=== PATIENT | female | born 1985 | race Caucasian/White ===

== ENCOUNTER → 2018-03-27 | Outpatient (CLI) | payer OTHER ==
[2018-03-27 18:31] LABS: HCT 42.8 % (34.0-46.0); HGB 13.8 gm/dL (11.4-16.0); MCH 30.3 pg (25.0-35.0); MCHC 32.2 g/dL (31.0-37.0); Mean Platelet Volume 6.5; Platelet Count 212 k/uL (150-450); RBC 4.55 m/uL (3.80-5.40); RDW 12.4 % (11.5-15.5); WBC 10.8 k/uL (3.8-10.6)
== END | disposition home or self-care (01) ==
LOC: LABMAIN 17:54
PROVIDERS: ATTEND Obstetrics & Gynecology
DX: Z34.01 Encounter for supervision of normal first pregnancy, first trimester (principal); Z3A.00 Weeks of gestation of pregnancy not specified
CPT/HCPCS: 36415; 82947; 85027; 86592; 86762; 86850; 86900; 86901; 87340

== ENCOUNTER 2018-11-09 03:14 | Inpatient (IN) | payer OTHER ==
[2018-11-09] MEDS ORDERED: LIDOCAINE 0.5% (PF) 5 MG/ML (50 ML SDV) SQ PRN (03:40)
[2018-11-09] MEDS ORDERED: METHYLERGONOVINE 0.2 MG/ML 1 ML AMP IM PRN (03:40)
[2018-11-09] MEDS ORDERED: OXYTOCIN 10 UNIT/ML 1 ML VIAL IM PRN (03:40)
[2018-11-09] MEDS ORDERED: TERBUTALINE 1 MG/ML VIAL SQ PRN (03:40)
[2018-11-09] MEDS ORDERED: CARBOPROST TROMETHAMINE 250 MCG/ML 1 ML AMP IM PRN (03:40)
[2018-11-09 04:02] LABS: Basophils % (A) 0 %; Eosinophils # (A) 0.1 k/uL (0-0.7); Eosinophils % (A) 1 %; HCT 40.7 % (34.0-46.0); HGB 13.2 gm/dL (11.4-16.0); Lymphocytes % (A) 26 %; MCH 29.4 pg (25.0-35.0); MCHC 32.4 g/dL (31.0-37.0); MCV 90.8 fL (80.0-100.0); Mean Platelet Volume 7.7; Monocytes # (A) 0.6 k/uL (0-1.0); Monocytes % (A) 6 %; Neutrophils # (A) 7.5 k/uL (1.3-7.7); Neutrophils % (A) 65 %; Platelet Count 228 k/uL (150-450); RBC 4.48 m/uL (3.80-5.40); RDW 13.1 % (11.5-15.5); WBC 11.5 k/uL (3.8-10.6)
[2018-11-09] MEDS: LACTATED RINGERS 1,000 ML IV SCH ×2 (05:13→07:32)
[2018-11-09] MEDS ORDERED: OXYTOCIN 30 UNITS/500 ML NS 30 UNIT in SALINE 1 500ML.BAG IV SCH (05:30)
[2018-11-09 05:34] VITALS: BMI 35.9
[2018-11-09] MEDS ORDERED: fentaNYL (PF) 50 MCG/ML 5 ML AMP ONE (07:29)
[2018-11-09] MEDS ORDERED: ROPIVACAINE 5MG/ML 20ML VIAL ONE (07:29)
[2018-11-09] MEDS ORDERED: SODIUM CHLORIDE 0.9% 100 ML BAG ONE (07:29)
[2018-11-09] MEDS ORDERED: PHENYLEPHRINE-0.9% NACL SYG 1 MG/10 ML SYRINGE ONE (07:29)
--- NOTE | 2018-11-09 08:21 | P.HPOB ---
History of Present Illness H&P Date: 11/09/18 Chief Complaint: Leaking of fluid This patient is a pleasant 32-year-old 1 para 0 female estimated date of confinement 11/13/2018 estimated gestational age 39-3/7 weeks who presents to labor and delivery with complaint of leaking of fluid at 2:30 this morning. Patient's found to have gross rupture membranes. She is beginning to have contractions upon admission. care is complicated by history of previous LEEP procedure 8 years ago by another physician. Patient was follow cervical lengths and routine exams and did not have any incompetency problems. Cervix tinted felt to be somewhat scarred however. care is otherwise been uncomplicated. Review of Systems Genitourinary: Reports Menstruation: Reports amenorrhea Past Medical History Past Medical History: No Reported History History of Any Multi-Drug Resistant Organisms: None Reported Additional Past Surgical History / Comment(s): Alice surgery on both feet (2011), LEEP (2009) Past Anesthesia/Blood Transfusion Reactions: No Reported Reaction Past Psychological History: No Psychological Hx Reported Smoking Status: Never smoker Past Alcohol Use History: None Reported Past Drug Use History: None Reported - Past Family History Mother History Unknown: Yes Family Medical History: No Reported History Additional Family Medical History / Comment(s): pt adopted Medications and Allergies Home Medications Medication Instructions Recorded Confirmed Type Pnv,Calcium 72/Iron/Folic Acid 1 tab PO DAILY 11/09/18 11/09/18 History [ Plus Tablet] Allergies Allergy/AdvReac Type Severity Reaction Status Date / Time No Known Allergies Allergy Verified 11/09/18 03:27 Exam Vital Signs Temp Pulse Resp BP Pulse Ox 11/09/18 03:59 97.7 F 83 16 133/85 99 11/09/18 03:29 97.7 F 83 16 133/85 Intake and Output 11/08/18 11/09/18 11/09/18 22:59 06:59 14:59 Other: # Voids 2 Weight 86.137 kg - OBG Physical Exam Abdomen: bowel sounds normal, no diffuse tenderness, no bruit present, no guarding noted, no hepatomegaly, no splenomegaly, no mass Vulva: both: normal Vagina: normal moisture, no discharge Cervix: Cervix is fingertip with some scarring however upon digital exam she is 4 cm. Cervix: no lesion, no discharge Uterus: enlarged (Fundal height is consistent with dates) Results blood work shows she is B positive, rubella immune, RPR nonreactive, hepatitis B negative she did do maternity 21 which showed normal 46 XY, Glucola was abnormal with a normal three-hour gtt. Ultrasounds of shown normal anatomy. Result Diagrams: 11/09/18 03:53 Abnormal Lab Results - Last 24 Hours (Table) 11/09/18 Range/Units 03:53 WBC 11.5 H (3.8-10.6) k/uL Assessment and Plan Assessment: This is a pleasant 32-year-old 1 para 0 female 39-3/7 weeks gestation with spontaneous rupture membranes in early labor. Patient does have some cervical stenosis from her previous cervical surgery but this has resolved with manual dilation. Plan is to augment as necessary, pain control as requested, and anticipate vaginal delivery. (1) Spontaneous rupture of amniotic membranes Current Visit: Yes Status: Acute Code(s): AZC7117 - SNOMED Code(s): 439597862 (2) 39 weeks gestation of Current Visit: Yes Status: Acute Code(s): Z3A.39 - 39 WEEKS GESTATION OF PRE GNANCY SNOMED Code(s): 12761175
--- NOTE | 2018-11-09 08:22 | P.MSEPDOC ---
Presenting Problems - Arrival Data Date of Arrival on Unit: 11/09/18 Time of Arrival on Unit: 03:15 Mode of Transport: Wheelchair - Complaint Comment: [id number] Medical History - Information : 1 Para: 0 Term: 0 : 0 Abortions: Spontaneous or Elective: 0 Number of Living Children: 0 - Gestational Age Gestational Age by LISA (wks/days): 39 Weeks and 3 Days Review of Systems - Review of Systems Constitutional: No problems Breast: No problems ENT: No problems Cardiovascular: No problems Respiratory: No problems Gastrointestinal: No problems Genitourinary: No problems Musculoskeletal: No problems Neurological: No problems Skin: No problems Vital Signs - Temperature Temperature: 97.7 F Temperature Source: Temporal Artery Scan - Pulse Right Sitting Brachial Pulse Rate: 83 Pulse Assessment Method: Automatic Cuff - Respirations Respiratory Rate: 16 Oxygen Delivery Method: Room Air O2 Sat by Pulse Oximetry: 99 - Blood Pressure Right Arm Sitting Blood Pressure: 133/85 Blood Pressure Mean: 101 Blood Pressure Source: Automatic Cuff Medical Screen Scoring (Pre) - Cervical Exam Dilation: 0 cm = 0 Membranes: Ruptured = 3 - Uterine Contractions Frequency: > or = 36 weeks =2 Duration: > 40 seconds = 2 - Maternal Vital Signs Maternal Temperature: N/A Maternal Blood Pressure: N/A Signs of Preeclampsia: N/A Maternal Respirations: N/A - Assessment Baseline FHR: 145 Heart Rate - NICHD Category: Category I (Normal) = 0 NST: Reactive - Total Score Total Score (Pre): 7 - Level of Risk Level of Risk: Medium (6-9) Physician Notification (Pre) - Physician Notified Physician Notified Date: 11/09/18 Physician Notified Time: 04:13 Physician/Practitioner Notifed:: DR SIMMS New Order Received: Yes Disposition - Disposition OB Disposition: Admit, LDRP Suite, Discharge to home I agree with the RN Medical Screening Exam: Yes Risk & Benefit of care provided described in d/c instruction: Yes Diagnosis: ENCOUNTER FOR FULL-TERM UNCOMPLICATED DELIVERY
[2018-11-09] MEDS ORDERED: SIMETHICONE 80 MG CHEWABLE PO PRN (14:05)
[2018-11-09] MEDS ORDERED: ACETAMINOPHEN TAB 325 MG TAB PO PRN (14:05)
[2018-11-09] MEDS ORDERED: BENZOCAINE/MENTHOL SPRAY 1 GM/SPRAY AEROSOL TOPICAL PRN (14:05)
[2018-11-09] MEDS ORDERED: LANOLIN CREAM 5 GM TUBE TOPICAL PRN (14:05)
[2018-11-09] MEDS ORDERED: HYDROCORTISONE 2.5% RECTAL CREAM 30 GM TUBE RECTAL PRN (14:05)
[2018-11-09] MEDS ORDERED: BISACODYL 10 MG SUPP RECTAL PRN (14:05)
[2018-11-09] MEDS ORDERED: WITCH HAZEL 1 EACH MED..PAD TOPICAL PRN (14:05)
[2018-11-09] MEDS ORDERED: diphenhydrAMINE 25 MG CAP PO PRN (14:05)
[2018-11-09] MEDS ORDERED: ZOLPIDEM 5 MG TAB PO PRN (14:05)
[2018-11-09] MEDS ORDERED: diphenhydrAMINE 50 MG/ML 1 ML VIAL IVP PRN (14:05)
[2018-11-09] MEDS ORDERED: OXYTOCIN 20 UNITS/1000 ML NS 1,000 ML IV SCH (14:15)
--- NOTE | 2018-11-09 14:26 | P.PROBDLV ---
Vaginal Delivery Note - . Vaginal Delivery Note: Normal spontaneous vaginal delivery viable male infant Apgars 9 and 9 delivery time is 1321 hrs. Please see dictated H&P for intimate details of this patient's admission. Brief summary is a pleasant 33-year-old 1 para 0 female 39-3/7 weeks gestation is admitted to labor and delivery complaints of gush of fluid about 2:30 this morning. On admission patient is closed to fingertip dilated and having regular painful contractions. Patient's had a history of previous LEEP procedure done about 8 years ago and I think she does have some cervical stenosis. Digitally the cervix is dilated to 4 cm easily and this adhesive band releases. Labor thereafter progresses normally and she does get an epidural for pain control. Patient gets to complete pushes for approximately 1-1/2 hours. Patient brings the head to the perineum the posterior perineum was supported. We have controlled delivery of 's head over the intact perineum. Mouth and nares are bulb suctioned. There is no evidence of nuchal cord. With gentle downward traction we then have delivery of the anterior and posterior shoulder and rest this 's body. This is a vigorous viable male Apgars are 9 and 9 delivery time is 1321 hrs. was laid on the mother's abdomen and after the cord is done pulsating is doubly clamped and cut appears to be trivascular. Placenta spontaneously delivered intact. Inspection of perineum shows a second- degree laceration posteriorly which is repaired with 3-0 Vicryl usual fashion excellent reapproximation is noted. She does have continued bright red bleeding and I cannot find a specific area this however does appear to become from one of the cervical edges and after prolonged observation this does not appear to be a significant amounts of therefore continue to watch her closely. Estimated blood loss is 400 mL. There are no complications. All counts are correct 3. Infant and mother stable delivery room.
[2018-11-09] MEDS: IBUPROFEN 600 MG TAB PO PRN ×2 (14:30→20:13)
[2018-11-09] MEDS: SENNOSIDES-DOCUSATE SODIUM 1 EACH TAB PO SCH (20:14)
[2018-11-10] MEDS: IBUPROFEN 600 MG TAB PO PRN ×2 (01:25→08:15)
[2018-11-10 06:54] LABS: Basophils % (A) 0 %; Eosinophils # (A) 0.1 k/uL (0-0.7); Eosinophils % (A) 1 %; HCT 33.2 % (34.0-46.0); HGB 10.9 gm/dL (11.4-16.0); Lymphocytes # (A) 3.2 k/uL (1.0-4.8); Lymphocytes % (A) 26 %; MCH 29.4 pg (25.0-35.0); MCV 89.3 fL (80.0-100.0); Mean Platelet Volume 8.8; Monocytes # (A) 0.5 k/uL (0-1.0); Monocytes % (A) 4 %; Neutrophils % (A) 67 %; Platelet Count 200 k/uL (150-450); RBC 3.72 m/uL (3.80-5.40); RDW 13.2 % (11.5-15.5); WBC 12.1 k/uL (3.8-10.6)
--- NOTE | 2018-11-10 07:13 | P.PNOBGVD ---
Subjective - Subjective Patient reports: Reports appetite normal, Reports voiding normally, Reports pain well controlled, Reports ambulating normally : doing well Objective - Latest Vital Signs Latest vital signs: Vital Signs Temp Pulse Resp BP Pulse Ox 11/10/18 00:00 97.9 F 76 16 125/85 98 11/09/18 20:00 97.4 F L 84 16 141/78 98 11/09/18 15:30 98.2 F 109 H 18 134/95 11/09/18 15:00 98.4 F 102 H 16 140/74 11/09/18 14:30 98.6 F 113 H 18 134/68 11/09/18 14:15 98.3 F 109 H 18 144/72 11/09/18 14:00 98.4 F 96 16 154/83 11/09/18 13:45 107 H 16 149/81 11/09/18 13:30 98.2 F 110 H 18 140/81 11/09/18 08:22 97.7 F 83 16 133/85 99 Intake and Output 11/09/18 11/10/18 11/10/18 22:59 06:59 14:59 Other: # Voids 1 2 - Exam Lungs: bilateral: normal Chest: Normal S1, Normal S2 Extremities: Present: normal Abdomen: Present: normal appearance, soft Uterus: Present: normal, firm - Labs Labs: Abnormal Lab Results - Last 24 Hours (Table) 11/10/18 Range/Units 06:40 WBC 12.1 H (3.8-10.6) k/uL RBC 3.72 L (3.80-5.40) m/uL Hgb 10.9 L (11.4-16.0) gm/dL Hct 33.2 L (34.0-46.0) % Neutrophils # 8.0 H (1.3-7.7) k/uL Assessment and Plan Assessment: day #1. Patient is resting without complaints wishes to go home. Vital signs are stable and she is afebrile. Uterus is firm nontender and she is having normal lochia. My impression is a normal course. Plan is to continue routine care discharge home later today. (1) Spontaneous rupture of amniotic membranes Current Visit: Yes Status: Acute Code(s): XVC9912 - SNOMED Code(s): 299689549 (2) 39 weeks gestation of Current Visit: Yes Status: Acute Code(s): Z3A.39 - 39 WEEKS GESTATION OF SNOMED Code(s): 53363928
--- NOTE | 2018-11-10 07:17 | P.DS ---
Providers Date of admission: 11/09/18 03:48 Expected date of discharge: 11/10/18 Attending physician: Genaro To Primary care physician: Genaro To - Discharge Diagnosis(es) (1) Spontaneous rupture of amniotic membranes Current Visit: Yes Status: Acute (2) 39 weeks gestation of Current Visit: Yes Status: Acute Hospital Course: Please see dictated H&P for intimate details of this patient's admission. Brief summary is a pleasant 33-year-old 1 para 0 female 39-3/7 weeks gestation admitted to labor and delivery spontaneous rupture membranes. Patient is admitting goes on have a vaginal delivery viable male infant. Please see dictated delivery note. day #1 patient was feeling well wishes to go home. Patient's felt be stable for discharge home follow up with me in 6 weeks. Procedures: Normal spontaneous vaginal delivery Patient Condition at Discharge: Good Plan - Discharge Summary New Discharge Prescriptions: New Ibuprofen [Motrin] 600 mg PO Q6HR PRN #40 tab PRN Reason: Mild Pain Or Fever >= 100.5 No Action Pnv,Calcium 72/Iron/Folic Acid [ Plus Tablet] 1 tab PO DAILY Discharge Medication List Pnv,Calcium 72/Iron/Folic Acid [ Plus Tablet] 1 tab PO DAILY 11/09/18 [History] Ibuprofen [Motrin] 600 mg PO Q6HR PRN #40 tab 11/10/18 [Rx] Follow up Appointment(s)/Referral(s): Genaro To MD [Primary Care Provider] - 6 Weeks Patient Instructions/Handouts: Vaginal Delivery (DC) Activity/Diet/Wound Care/Special Instructions: No intercourse or anything per vagina for 6 weeks. Please call if any fever, chills, excessive vaginal bleeding, and/or abdominal pain. Discharge Disposition: HOME SELF-CARE
[2018-11-10] MEDS: SENNOSIDES-DOCUSATE SODIUM 1 EACH TAB PO SCH (08:14)
[2018-11-10 09:05] VITALS: BP 123/75; PULSE 79; RESP 18; TEMP 98.3
== END 2018-11-10 16:49 | disposition home or self-care (01) | DRG 807 ==
LOC: FBPOP 03:14 → 4FBP 03:48
PROVIDERS: ADMIT Obstetrics & Gynecology; ATTEND Obstetrics & Gynecology
PROC: 10E0XZZ Delivery of Products of Conception, External Approach (ICD-10-PCS; principal; 2018-11-09)
PROC: 0U7C7ZZ Dilation of Cervix, Via Natural or Artificial Opening (ICD-10-PCS; 2018-11-09)
PROC: 00HU33Z Insertion of Infusion Device into Spinal Canal, Percutaneous Approach (ICD-10-PCS; 2018-11-09)
PROC: 3E0R3BZ Introduction of Anesthetic Agent into Spinal Canal, Percutaneous Approach (ICD-10-PCS; 2018-11-09)
DX: O34.43 Maternal care for other abnormalities of cervix, third trimester (principal); Z37.0 Single live birth; N88.2 Stricture and stenosis of cervix uteri; Z3A.39 39 weeks gestation of pregnancy; Z79.899 Other long term (current) drug therapy
CPT/HCPCS: 59025; 85025; 86850; 86900; 86901; 99213

== ENCOUNTER → 2020-06-11 | Outpatient (CLI) | payer BC, OTHER | END | disposition home or self-care (01) | LOC: LABWHC1 15:38 | PROVIDERS: ATTEND Family Medicine | DX: Z20.828 Contact with and (suspected) exposure to other viral communicable diseases (principal) | CPT/HCPCS: U0003; C9803 ==

== ENCOUNTER 2020-12-20 05:55 | Inpatient (IN) | payer BC ==
[2020-12-20] MEDS ORDERED: CARBOPROST TROMETHAMINE 250 MCG/ML 1 ML AMP IM PRN (06:08)
[2020-12-20] MEDS ORDERED: TERBUTALINE 1 MG/ML VIAL SQ PRN (06:08)
[2020-12-20] MEDS ORDERED: OXYTOCIN 30 UNITS/500 ML NS 30 UNIT in SALINE 1 500ML.BAG IV SCH ×2 (06:08→12:33)
[2020-12-20] MEDS ORDERED: METHYLERGONOVINE 0.2 MG/ML 1 ML AMP IM PRN (06:08)
[2020-12-20] MEDS ORDERED: OXYTOCIN 10 UNIT/ML 1 ML VIAL IM PRN (06:08)
[2020-12-20] MEDS ORDERED: LIDOCAINE 0.5% (PF) 5 MG/ML (50 ML SDV) SQ PRN (06:08)
--- NOTE | 2020-12-20 06:14 | P.HPOB ---
History of Present Illness H&P Date: 12/20/20 Chief Complaint: Requested induction of labor. This patient is a pleasant 35-year-old 2 para 1 female estimated date of confinement 12/27/2020 estimated gestational age 39-0/7 weeks who presents to labor and delivery for requested induction of labor. Patient's care has been uncomplicated. She does have a history of LEEP in the past and has been on pelvic rest since 20 weeks. Patient did have a Materni T21 done that showed a normal 46 XY. Review of Systems Genitourinary: Reports Menstruation: Reports amenorrhea Past Medical History Past Medical History: No Reported History Additional Past Medical History / Comment(s): Patient previous term vaginal delivery a 9 pounds 5 ounces baby boy. History of Any Multi-Drug Resistant Organisms: None Reported Additional Past Surgical History / Comment(s): Alice surgery on both feet (2011), LEEP (2009) Past Anesthesia/Blood Transfusion Reactions: No Reported Reaction Past Psychological History: No Psychological Hx Reported Smoking Status: Never smoker Past Alcohol Use History: None Reported Past Drug Use History: None Reported - Past Family History Mother History Unknown: Yes Family Medical History: No Reported History Additional Family Medical History / Comment(s): pt adopted Medications and Allergies Home Medications Medication Instructions Recorded Confirmed Type Pnv,Calcium 72/Iron/Folic Acid 1 tab PO DAILY 11/09/18 11/09/18 History [ Plus Tablet] Allergies Allergy/AdvReac Type Severity Reaction Status Date / Time No Known Allergies Allergy Verified 12/20/20 06:07 Exam Intake and Output 12/19/20 12/19/20 12/20/20 14:59 22:59 06:59 Other: Weight 79.379 kg - OBG Physical Exam Abdomen: bowel sounds normal, no diffuse tenderness, no bruit present, no guarding noted, no hepatomegaly, no splenomegaly, no mass Vulva: both: normal Vagina: normal moisture, no discharge Cervix: no lesion (Cervix in the office was 2 cm dilated 50% effaced -2 station), no discharge Uterus: enlarged (Fundal height 38 cm) Results blood work shows she is B+, rubella immune, RPR nonreactive, hepatitis B negative, group B strep was negative, most recent ultrasound showed normal growth, Materni T21 was 46 XY Assessment and Plan Assessment: This is a pleasant 35-year-old 2 para 1 female 39-0/7 weeks gestation who presents to labor and delivery for requested induction of labor. Plan is induction of labor and anticipate vaginal delivery (1) Elective induction of labor planned Current Visit: Yes Status: Acute Code(s): LCI4745 - SNOMED Code(s): 887077807 (2) 39 weeks gestation of Current Visit: No Status: Acute Code(s): Z3A.39 - 39 WEEKS GESTATION OF SNOMED Code(s): 49451022
[2020-12-20] MEDS: LACTATED RINGERS 1,000 ML IV SCH ×2 (06:29→10:01)
[2020-12-20 06:30] LABS: Basophils % (A) 0 %; Eosinophils # (A) 0.2 k/uL (0-0.7); Eosinophils % (A) 2 %; HCT 38.5 % (34.0-46.0); HGB 13.6 gm/dL (11.4-16.0); Lymphocytes # (A) 2.5 k/uL (1.0-4.8); Lymphocytes % (A) 23 %; MCH 31.6 pg (25.0-35.0); MCHC 35.3 g/dL (31.0-37.0); MCV 89.6 fL (80.0-100.0); Mean Platelet Volume 7.7; Monocytes # (A) 0.6 k/uL (0-1.0); Monocytes % (A) 6 %; Neutrophils # (A) 7.1 k/uL (1.3-7.7); Neutrophils % (A) 68 %; Platelet Count 200 k/uL (150-450); RDW 12.6 % (11.5-15.5); WBC 10.5 k/uL (3.8-10.6)
[2020-12-20] MEDS ORDERED: ROPIVACAINE 5MG/ML 20ML VIAL ONE (10:09)
[2020-12-20] MEDS ORDERED: fentaNYL (PF) 50 MCG/ML 5 ML AMP ONE (10:09)
[2020-12-20] MEDS ORDERED: SODIUM CHLORIDE 0.9% 100 ML BAG ONE (10:09)
[2020-12-20] MEDS ORDERED: diphenhydrAMINE 25 MG CAP PO PRN (12:33)
[2020-12-20] MEDS ORDERED: bisacodyL 10 MG SUPP RECTAL PRN (12:33)
[2020-12-20] MEDS ORDERED: ACETAMINOPHEN TAB 325 MG TAB PO PRN (12:33)
[2020-12-20] MEDS ORDERED: LANOLIN CREAM 5 GM TUBE TOPICAL PRN (12:33)
[2020-12-20] MEDS ORDERED: ZOLPIDEM 5 MG TAB PO PRN (12:33)
[2020-12-20] MEDS ORDERED: diphenhydrAMINE 50 MG/ML 1 ML VIAL IVP PRN (12:33)
[2020-12-20] MEDS ORDERED: SIMETHICONE 80 MG CHEWABLE PO PRN (12:33)
[2020-12-20] MEDS ORDERED: BENZOCAINE/MENTHOL SPRAY 1 GM/SPRAY AEROSOL TOPICAL PRN (12:33)
[2020-12-20] MEDS ORDERED: HYDROCORTISONE 2.5% RECTAL CREAM 30 GM TUBE RECTAL PRN (12:33)
[2020-12-20] MEDS: IBUPROFEN 600 MG TAB PO PRN ×2 (13:21→21:17)
[2020-12-20] MEDS: SENNOSIDES-DOCUSATE SODIUM 1 EACH TAB PO SCH ×2 (13:22→21:04)
--- NOTE | 2020-12-20 17:25 | P.PROBDLV ---
Vaginal Delivery Note - . Vaginal Delivery Note: Normal vaginal delivery viable male infant Apgars 8 and 9 delivery time is 1205 hrs. Please see dictated H&P for intimate details of this patient's admission. Brief summary this is a pleasant 35-year-old 2 para 1 female 39 0/7 weeks gestation who is admitted to labor and delivery for requested induction of labor. Patient is admitted and is 2 cm dilated and has artificial rupture membranes for clear fluid. Labor is induced with Pitocin per protocol. Patient does get an epidural for pain control. Patient does progress quickly gets to complete. Patient pushes approximately 2 times pushes the head to the perineum. Posterior perineum is supported we have controlled delivery of the infant's head over the intact perineum. Mouth and nares are bulb suctioned. There is a tight nuchal cord which is doubly clamped cut and reduced. With gentle downward traction we then have deliver the anterior and posterior shoulder and rest this 's body. This is a vigorous viable male Apgars are 8 and 9 delivery time is 1205 hrs. After delivery of the the placenta spontaneously delivered intact. Estimated blood loss approximately 150 mL. There is a first-degree posterior laceration was repaired with 3-0 Vicryl usual fashion and excellent reapproximation is noted. No other lacerations are noted. All counts correct 3. There are no complications. Infant and mother are stable delivery room.
[2020-12-21] MEDS: IBUPROFEN 600 MG TAB PO PRN ×2 (04:37→08:19)
--- NOTE | 2020-12-21 06:00 | P.PNOBGVD ---
Subjective - Subjective Patient reports: Reports appetite normal, Reports voiding normally, Reports pain well controlled, Reports ambulating normally : doing well Objective - Latest Vital Signs Latest vital signs: Vital Signs Temp Pulse Resp BP Pulse Ox 12/21/20 04:00 98.0 F 76 16 121/75 94 L 12/21/20 00:45 98.0 F 77 16 123/79 94 L 12/20/20 20:20 98.2 F 73 16 131/81 98 12/20/20 16:00 97.3 F L 80 18 135/75 12/20/20 14:13 98.0 F 85 17 109/59 12/20/20 13:43 90 18 127/78 12/20/20 13:13 97.9 F 99 18 112/56 12/20/20 12:58 90 17 107/54 12/20/20 12:43 88 17 105/70 12/20/20 12:28 90 17 107/58 12/20/20 12:13 98.3 F 104 H 18 131/73 12/20/20 06:07 96.2 F L 74 16 116/71 98 Intake and Output 12/20/20 12/20/20 12/21/20 14:59 22:59 06:59 Intake Total 1144.733 500 Output Total 200 Balance 944.733 500 Intake: IV 1000 500 Invasive Line 1 500 Intake, IV Titration 144.733 Amount Oxytocin 30 Units/500 ml 144.733 Ns 30 unit In Saline 1 500ml.bag @ Per Protocol IV .Q0M [facility] Rx#:[id number] Output: Urine 200 Other: # Voids 1 2 1 - Exam Lungs: bilateral: normal Chest: Normal S1, Normal S2 Extremities: Present: normal Abdomen: Present: normal appearance, soft Uterus: Present: normal, firm Assessment and Plan Assessment: day #1. Patient is resting without complaints and wishes to go home. Vital signs are stable she's afebrile. Uterus is firm nontender she's having normal lochia. My impression this is a normal course. Plan is to continue routine care and discharge home later today (1) Elective induction of labor planned Current Visit: Yes Status: Acute Code(s): [id number] - SNOMED Code(s): 698579170 (2) 39 weeks gestation of Current Visit: No Status: Acute Code(s): Z3A.39 - 39 WEEKS GESTATION OF SNOMED Code(s): 97650811
--- NOTE | 2020-12-21 06:02 | P.DS ---
Providers Date of admission: 12/20/20 05:55 Expected date of discharge: 12/21/20 Attending physician: Genaro To Primary care physician: Salomon Valdez - Discharge Diagnosis(es) (1) Elective induction of labor planned Current Visit: Yes Status: Acute (2) 39 weeks gestation of Current Visit: No Status: Acute Hospital Course: Please see dictated H&P for intimate details of this patient's admission. Brief summary this is a pleasant 35-year-old 2 para 1 female 39-0/7 weeks gestation admitted to labor and delivery for elective induction of labor. Patient quickly goes on to have a vaginal delivery viable male . Please see dictated delivery note. day 1 patient without complaints wishes to go home. Patient's felt be stable for discharge home follow up with me in 6 weeks. Procedures: Induction of labor and normal vaginal delivery Patient Condition at Discharge: Good Plan - Discharge Summary New Discharge Prescriptions: New Ibuprofen [Motrin] 600 mg PO Q6H PRN #30 tab PRN Reason: Pain No Action Pnv,Calcium 72/Iron/Folic Acid [ Plus Tablet] 1 tab PO DAILY Discharge Medication List Pnv,Calcium 72/Iron/Folic Acid [ Plus Tablet] 1 tab PO DAILY 11/09/18 [History] Ibuprofen [Motrin] 600 mg PO Q6H PRN #30 tab 12/21/20 [Rx] Follow up Appointment(s)/Referral(s): Genaro To MD [STAFF PHYSICIAN] - 02/01/21 9:30 am Patient Instructions/Handouts: Vaginal Delivery (DC) Activity/Diet/Wound Care/Special Instructions: No intercourse or anything per vagina for 6 weeks. Please call if any fever, chills, excessive vaginal bleeding, and/or abdominal pain. Discharge Disposition: HOME SELF-CARE
[2020-12-21] MEDS: SENNOSIDES-DOCUSATE SODIUM 1 EACH TAB PO SCH (08:19)
[2020-12-21 09:00] VITALS: BP 117/84; PULSE 73; RESP 18; TEMP 97.5
[2020-12-21] MEDS ORDERED: PROPOFOL 10 MG/ML 20 ML VIAL IV ONE (12:37)
[2020-12-21] MEDS ORDERED: LIDOCAINE 1% INJ 10MG/ML (20 ML MDV) ONE (12:37)
== END 2020-12-21 13:27 | disposition home or self-care (01) | DRG 807 ==
LOC: 4FBP 05:55
PROVIDERS: ADMIT Obstetrics & Gynecology; ATTEND Obstetrics & Gynecology
PROC: 10E0XZZ Delivery of Products of Conception, External Approach (ICD-10-PCS; principal; 2020-12-20)
DX: O69.1XX0 Labor and delivery complicated by cord around neck, with compression, not applicable or unspecified (principal); Z37.0 Single live birth; Z3A.39 39 weeks gestation of pregnancy
CPT/HCPCS: 85025; 86850; 86900; 86901

== ENCOUNTER 2021-06-14 20:37 | Emergency (ER) | payer BC ==
[2021-06-14 21:16] VITALS: BP 139/97; PULSE 61; RESP 18; TEMP 98.3
--- NOTE | 2021-06-14 21:42 | ED ---
URI HPI - General Chief Complaint: Upper Respiratory Infection Stated Complaint: COVID+,Wants Infusion Time Seen by Provider: 06/14/21 21:29 Source: patient Mode of arrival: ambulatory Limitations: no limitations - History of Present Illness Initial Comments: 35-year-old female patient presents to the emergency department today requesting infusion of monoclonal antibodies. Patient states she has been sick for the last 2-3 days with a dry cough, shortness of breath, and headaches. States she did test positive for COVID-19 today. Denies any chronic medical conditions. Denies having the vaccine. She has never been diagnosed with COVID-19 in the past. She denies any fever or chills. Denies any nausea, vomiting, diarrhea. She is eating and drinking without difficulty. She denies any chance of . - Related Data Home Medications Medication Instructions Recorded Confirmed Ascorbic Acid [Vitamin C] 1,000 mg PO DAILY 06/14/21 06/14/21 Cholecalciferol [Vitamin D3 (25 25 mcg PO DAILY 06/14/21 06/14/21 Mcg = 1000 Iu)] Norethindrone-E.estradiol-Iron 1 tab PO DAILY 06/14/21 06/14/21 [Aurovela Fe 1.5 mg-30 Mcg Tab] Zinc Gluconate [Zinc] 50 mg PO DAILY 06/14/21 06/14/21 Allergies Allergy/AdvReac Type Severity Reaction Status Date / Time No Known Allergies Allergy Verified 06/14/21 22:28 Review of Systems ROS Statement: Those systems with pertinent positive or pertinent negative responses have been documented in the HPI. ROS Other: All systems not noted in ROS Statement are negative. Past Medical History Past Medical History: No Reported History Additional Past Medical History / Comment(s): Patient previous term vaginal delivery a 9 pounds 5 ounces baby boy. History of Any Multi-Drug Resistant Organisms: None Reported Additional Past Surgical History / Comment(s): Alice surgery on both feet (2012), LEEP (2009) Past Anesthesia/Blood Transfusion Reactions: No Reported Reaction Past Psychological History: No Psychological Hx Reported Smoking Status: Never smoker Past Alcohol Use History: Occasional Past Drug Use History: None Reported - Past Family History Mother History Unknown: Yes Family Medical History: No Reported History Additional Family Medical History / Comment(s): pt adopted General Exam Limitations: no limitations General appearance: alert, in no apparent distress, other (Physical well- developed, well-nourished adult female patient in no acute distress.) Eye exam: Present: normal appearance, PERRL, EOMI. Absent: scleral icterus, conjunctival injection, periorbital swelling ENT exam: Present: normal exam, normal oropharynx, mucous membranes moist Respiratory exam: Present: normal lung sounds bilaterally. Absent: respiratory distress, wheezes, rales, rhonchi, stridor Cardiovascular Exam: Present: regular rate, normal rhythm, normal heart sounds. Absent: systolic murmur, diastolic murmur, rubs, gallop, clicks GI/Abdominal exam: Present: soft, normal bowel sounds. Absent: distended, tenderness, guarding, rebound, rigid Neurological exam: Present: alert, oriented X3, CN II-XII intact Psychiatric exam: Present: normal affect, normal mood Skin exam: Present: warm, dry, intact, normal color. Absent: rash Course Vital Signs 06/14/21 21:14 Temperature 98.3 F Pulse Rate 61 Respiratory 18 Rate Blood Pressure 139/97 O2 Sat by Pulse 99 Oximetry Medical Decision Making - Medical Decision Making 35-year-old female patient presenting for monoclonal antibody infusion. She's been sick for the last 2-3 days. Tested positive today. She did as tolerated the infusion well no difficulties. She'll be discharged follow up with her primary care physician for recheck in 1-2 days. Return parameters were discussed in detail. She verbalizes understanding and agrees with this plan. My attending is Dr. Grande. Disposition Clinical Impression: COVID-19 Disposition: HOME SELF-CARE Condition: Good Instructions (If sedation given, give patient instructions): Coronavirus Disease 2019 (COVID-19) Additional Instructions: Alternate Tylenol and Motrin for pain and fever control. Increase fluids. Follow-up with your primary care physician for recheck as needed. Return for any new, worsening, or concerning symptoms. Is patient prescribed a controlled substance at d/c from ED?: No Referrals: Salomon Valdez DO [Primary Care Provider] - 1-2 days Time of Disposition: 23:07
[2021-06-14] MEDS ORDERED: SODIUM CHLORIDE 0.9% 50 ML IVPB ONE (21:45)
[2021-06-14] MEDS ORDERED: BAMLANIVIMAB (EUA) 700 MG, ETESEVIMAB (EUA) 1,400 MG in SODIUM CHLORIDE 0.9% 50 ML IVPB ONE (21:45)
== END 2021-06-14 23:35 | disposition home or self-care (01) ==
LOC: EC 20:37
DX: U07.1 COVID-19 (principal)
CPT/HCPCS: 96365 ×2; 96361 ×2; 99284 ×2; J3490

== ENCOUNTER → 2022-02-01 | Outpatient (CLI) | payer BC ==
--- NOTE | 2022-02-02 09:16 | MM ---
Reason for Exam: Screening (asymptomatic). Baseline mammogram. Patient History: Menarche at age 12. First Full-Term at age 33. Late child-bearing (after 30). Last menstrual period: 01/12/2022 Risk Values: Margret 5 year model risk: 0.4%. NCI Lifetime model risk: 15.1%. Prior Study Comparison: Patient's first Mammogram. Tissue Density: The breast tissue is heterogeneously dense. This may lower the sensitivity of mammography. Findings: Analyzed By CAD. There is no suspicious group of microcalcifications or new suspicious mass in either breast. Overall Assessment: Negative, BI-RAD 1 Management: Screening Mammogram of both breasts in 1 year. A clinical breast exam by your physician is recommended on an annual basis and results should be correlated with mammographic findings. Electronically signed and approved by: Hilton Tam M.D. Radiologis
== END | disposition home or self-care (01) ==
LOC: RADMAMWWP 07:00
PROVIDERS: ATTEND Obstetrics & Gynecology
DX: Z12.31 Encounter for screening mammogram for malignant neoplasm of breast (principal)
CPT/HCPCS: 77067

== ENCOUNTER → 2023-06-28 | Outpatient (CLI) | payer BC ==
--- NOTE | 2023-06-29 12:13 | MM ---
Reason for Exam: Screening (asymptomatic). Last mammogram was performed 1 year(s) and 4 month(s) ago. Patient History: Menarche at age 12. First Full-Term at age 33. Late child-bearing (after 30). 03/30/2022, Bilateral Reduction. Last menstrual period: 06/13/2023 Risk Values: Margret 5 year model risk: 0.5%. NCI Lifetime model risk: 15.1%. Prior Study Comparison: 02/01/2022 Bilateral MG screening mammo w CAD, [facility]. Tissue Density: There are scattered fibroglandular densities. Findings: Analyzed By CAD. There is no suspicious group of microcalcifications or new suspicious mass. Overall Assessment: Negative, BI-RAD 1 Management: Screening Mammogram of both breasts in [address] [facility] will attempt to contact patient to return for supplemental views and ultrasound if indicated. Patient should continue monthly self-breast exams. A clinical breast exam by your physician is recommended on an annual basis. This exam should not preclude additional follow-up of suspicious palpable abnormalities. Note on Margret scores and lifetime risk: 1. A Margret score greater than 3% is considered moderate risk. If this is the case, consider specialist referral to assess eligibility for a risk reducing agent. 2. If overall lifetime risk for the development of breast cancer is 20% or higher, the patient may qualify for future screening with alternating mammogram and breast MRI. Electronically signed and approved by: Jimmie Roach DO
== END | disposition home or self-care (01) ==
LOC: RADMAMWWP 13:07
PROVIDERS: ATTEND Family Medicine
DX: Z12.31 Encounter for screening mammogram for malignant neoplasm of breast (principal)
CPT/HCPCS: 77067